=== PATIENT | male | born 1995 | race Caucasian/White ===

== ENCOUNTER 2018-06-01 23:26 | Emergency (ER) | payer OTHER ==
[~2018-06-01] VITALS: Ht 185.4 cm; Wt 81.7 kg
[2018-06-01] MEDS ORDERED: IBUPROFEN 800800 M1 PO (23:58)
[2018-06-01] MEDS ORDERED: ACETAMINOPHEN-1 EAC1 PO (23:58)
[2018-06-02 00:16] VITALS: BP 146/97
== END 2018-06-02 00:17 | disposition home or self-care (01) ==
LOC: M.ERS 23:26
DX: S02.5XXA Fracture of tooth (traumatic), initial encounter for closed fracture (principal); J45.909 Unspecified asthma, uncomplicated; X58.XXXA Exposure to other specified factors, initial encounter; Y93.89 Activity, other specified; Y92.89 Other specified places as the place of occurrence of the external cause; Y99.8 Other external cause status

== ENCOUNTER 2018-11-08 18:18 | Emergency (ER) | payer OTHER ==
[~2018-11-08] VITALS: Ht 208.3 cm; Wt 113.4 kg
[~2018-11-08 18:18] MED LIST: ACETAMINOPHEN-1 EAC1 PO; BUPROPION XL300 MG; IBUPROFEN 800800 M1 PO; ROBINUL; XANAX1 MG; XANAX1 MG PO
[2018-11-08] MEDS ORDERED: ADDERALL 10 MG10 MG PO (18:29)
[2018-11-08] MEDS ORDERED: VISTARIL50 MG PO (18:31)
[2018-11-08] MEDS ORDERED: VISTARIL 25 MG25 M1 PO (18:32)
[2018-11-08 19:04] LABS: URINE BILIRUBIN NEGATIVE (Negative); URINE BLOOD NEGATIVE (Negative); URINE CLARITY CLEAR; URINE COLOR YELLOW; URINE GLUCOSE-RANDOM NEGATIVE (Negative); URINE KETONES NEGATIVE (Negative); URINE LEUKOCYTES NEGATIVE (Negative); URINE NITRITE NEGATIVE (Negative); URINE PROTEIN NEGATIVE (Negative); URINE UROBILINOGEN 0.2 E.U./dl (0.2-1.0)
[2018-11-08 19:07] LABS: HEMATOCRIT 44.4 % (42.0-52.0); HEMOGLOBIN 14.9 gm/dL (14.0-18.0); MCH 32.1 pg (26.0-34.0); MCHC 33.6 g/dL (28.0-37.0); MCV 95.3 fL (80.0-100.0); MPV 8.1 fl. (7.2-11.1); RBC 4.66 mil/uL (4.50-6.00); RDW-CV 12.9 % (10.5-14.5); WBC 11.8 thou/uL (4.0-11.0)
[2018-11-08 19:11] LABS: AMP/METHAMP Negative (Negative); BARBITURATES Negative (Negative); BENZODIAZEPINES POSITIVE (Negative); COCAINE Negative (Negative); METHADONE Negative (Negative); OPIATES Negative (Negative); PCP Negative (Negative); THC POSITIVE (Negative)
[2018-11-08 19:14] LABS: CALCIUM 8.2 mg/dL (8.5-10.1); CREATININE 0.9 mg/dL (0.6-1.3); POTASSIUM 3.9 mmol/L (3.5-5.1)
[2018-11-08 19:17] LABS: SALICYLATE 2.9 mg/dL (2.8-20.0)
[2018-11-08 19:18] LABS: ACETAMINOPHEN < 2 ug/mL (10-30); ALCOHOL < 10 mg/dL (<10)
[2018-11-08 19:19] LABS: ALBUMIN 3.7 g/dL (3.4-5.0); TOTAL BILIRUBIN 0.6 mg/dL (<0.1-1.0); TOTAL PROTEIN 6.8 g/dL (6.4-8.2)
[2018-11-09 16:55] VITALS: BP 152/94
--- NOTE | 2018-11-10 08:58 | EKG ---
[place] [address] ELECTROCARDIOGRAM REPORT Name: CHANCE KAUFMAN Room: [facility]#: [id number] Admission: 11/08/18 Attend Phys: Discharge: 11/09/18 Date of : [birth year] Report #: [id number] THIS REPORT FOR: //name// [facility] ED Test Date: 2018-11-08 Test Time: 18:51:10 Pat Name: CHANCE KAUFMAN Department: Room: Gender: M Hospital Aide: ME : 1995 Requested By: Ellen Padilla Order Number: [id number] MD: Mickey Johnson Measurements Intervals [place] Rate: 71 P: 26 TN: 173 QRS: -9 QRSD: 93 T: 9 QT: 393 QTc: 428 Interpretive Statements Sinus rhythm No previous ECG available for comparison Electronically Signed On 11-10-2018 8:58:02 CDT by Mickey Johnson [email or web address] <ELECTRONICALLY SIGNED> By: Mickey Johnson MD, [facility] 11/10/18 [id number] 1851 Mickey Johnson MD, FACC /EPI
== END 2018-11-09 16:55 ==
LOC: M.ERS 18:18
PROVIDERS: Personal Emergency Response Attendant
DX: T43.622A Poisoning by amphetamines, intentional self-harm, initial encounter (principal); T45.0X2A Poisoning by antiallergic and antiemetic drugs, intentional self-harm, initial encounter; R45.851 Suicidal ideations; F17.210 Nicotine dependence, cigarettes, uncomplicated; Y92.89 Other specified places as the place of occurrence of the external cause

== ENCOUNTER 2018-12-21 14:18 | Emergency (ER) | payer OTHER ==
[~2018-12-21] VITALS: Ht 185.4 cm; Wt 90.7 kg
[~2018-12-21 14:18] MED LIST changes: +ADDERALL 10 MG10 MG PO; +VISTARIL 25 MG25 M1 PO; +VISTARIL50 MG PO
[2018-12-21] MEDS ORDERED: WELLBUTRIN 100100 MG PO (14:28)
[2018-12-21] MEDS ORDERED: TRAZODONE HCL50 MG PO (16:00)
[2018-12-21 16:17] VITALS: BP 161/101
== END 2018-12-21 16:19 | disposition home or self-care (01) ==
LOC: M.ERS 14:18
DX: Z76.0 Encounter for issue of repeat prescription (principal); F41.9 Anxiety disorder, unspecified; F90.9 Attention-deficit hyperactivity disorder, unspecified type; F32.9 Major depressive disorder, single episode, unspecified; Z91.030 Bee allergy status

== ENCOUNTER 2020-06-30 10:21 | Emergency (ER) | payer OTHER ==
[~2020-06-30] VITALS: Ht 185.4 cm; Wt 108.9 kg
[~2020-06-30 10:21] MED LIST changes: +TRAZODONE HCL50 MG PO; +WELLBUTRIN 100100 MG PO
[2020-06-30] MEDS ORDERED: WELLBUTRIN XL300 MG PO (10:37)
[2020-06-30] MEDS ORDERED: CLONAZEPAM 0.50.5 M1 PO (10:37)
[2020-06-30] MEDS ORDERED: INTUNIV2 MG PO (10:37)
[2020-06-30] MEDS ORDERED: DIPHENHIST50 MG PO (11:20)
[2020-06-30] MEDS ORDERED: PREDNISONE 10 M10 M1 PO (11:20)
[2020-06-30] MEDS ORDERED: EPIPEN 2-P0.3 MG/0.3 IM (11:21)
[2020-06-30 11:30] VITALS: BP 117/78
== END 2020-06-30 11:30 | disposition home or self-care (01) ==
LOC: M.ERS 10:21
DX: R22.0 Localized swelling, mass and lump, head (principal); T50.995A Adverse effect of other drugs, medicaments and biological substances, initial encounter; Z91.030 Bee allergy status; Y92.89 Other specified places as the place of occurrence of the external cause